=== PATIENT | female | born 1950 | race Caucasian/White ===

== ENCOUNTER 2023-11-24 20:25 | Inpatient (IN) | payer MEDICARE ==
[~2023-11-24] VITALS: Ht 163.8 cm; Wt 72.6 kg
[2023-11-24] MEDS ORDERED: ONDANSETRON HYDR4 M1 PO (21:00)
[2023-11-24] MEDS ORDERED: AMITRIPTYLINE10 MG PO (21:01)
[2023-11-24] MEDS ORDERED: CYCLOBENZAPRINE10 MG PO (21:01)
[2023-11-24] MEDS ORDERED: GLIPIZIDE10 M2 PO (21:02)
[2023-11-24] MEDS ORDERED: LEXAPRO20 MG PO (21:02)
[2023-11-24] MEDS ORDERED: LOSARTAN POTAS100 M1 PO (21:03)
[2023-11-24] MEDS ORDERED: LEVOTHYROXINE75 MC1 PO (21:03)
[2023-11-24] MEDS ORDERED: METOPROLOL SUCC50 M1 PO (21:06)
[2023-11-24] MEDS ORDERED: MIRTAZAPINE30 M2 PO (21:07)
[2023-11-24] MEDS ORDERED: SIMVASTATIN80 MG PO (21:08)
[2023-11-24] MEDS ORDERED: ZOLOFT50 MG PO (21:08)
[2023-11-24] MEDS ORDERED: METFORMIN XR500 MG PO (21:09)
[2023-11-24] MEDS ORDERED: ACTOS30 M1 PO (21:10)
[2023-11-24] MEDS ORDERED: ROPINIROLE HYD0.5 MG PO (21:11)
[2023-11-24] MEDS ORDERED: GEMFIBROZIL600 MG PO (21:12)
[2023-11-24 21:18] VITALS: BP 120/58
[2023-11-24] MEDS ORDERED: MG-AL HYDROXIDE/SIMETICONE 30 ML UDC PO PRN (21:35)
[2023-11-24] MEDS ORDERED: Magnesium Hydroxide 30 ML UDC PO PRN (21:35)
[2023-11-24] MEDS ORDERED: ACETAMINOPHEN 325 MG TAB PO PRN (21:35)
[2023-11-24] MEDS ORDERED: Menthol/Zinc Oxide 4 GM THIN T PRN (21:50)
[2023-11-24] MEDS ORDERED: Ziprasidone Mesylate 20 MG VIAL IM PRN (22:00)
[2023-11-24] MEDS ORDERED: LORazepam 1 MG TAB PO PRN (22:00)
[2023-11-24 22:34] LABS: BILIRUBIN Negative (Negative); BLOOD Negative (Negative); CLARITY Clear (Clear); COLOR Yellow (Yellow); GLUCOSE Negative (Negative); KETONE Negative (Negative); LEUKO ESTERASE 2+ (Negative); NITRITE Negative (Negative); PH 6.5 (4.5-8.0); UROBILINOGEN 0.2 E.U./dl (0.0-1.0)
[2023-11-24 22:46] LABS: RBC 0-2 rbc/hpf (0-2); WBC 16-20 wbc/hpf (0-5)
[2023-11-25] MEDS ORDERED: Ropinirole Hydrochloride 0.5 MG TAB PO PRN (03:10)
[2023-11-25] MEDS ORDERED: Cyclobenzaprine Hydrochlorid 10 MG TAB PO PRN (03:15)
[2023-11-25] MEDS ORDERED: Melatonin 5 MG TABLET PO PRN (03:40)
[2023-11-25] MEDS ORDERED: Acetaminophen/Hydrocodone HP 10/325 PO PRN (03:40)
[2023-11-25] MEDS ORDERED: Ropinirole Hydrochloride 0.5 MG TAB ONE (03:52)
[2023-11-25] MEDS ORDERED: Levothyroxine Sodium 75 MCG TAB PO SCH (06:00)
[2023-11-25 07:03] LABS: BASO % 0.3 % (0.0-1.0); EOS # 0.1 10*3/uL (0.0-0.4); EOS % 1.1 % (1.0-4.0); HEMATOCRIT 32.1 % (37.0-47.0); LYMPH # 1.8 10*3/uL (1.3-4.4); LYMPH % 27.7 % (27.0-41.0); MEAN CELL VOLUME 101.3 fl (81.0-99.0); MEAN CORPUSCULAR HGB 32.2 pg (27.0-31.0); MEAN CORPUSCULAR HGB CONC 31.8 g/dl (33.0-37.0); MEAN PLATELET VOLUME 9.7 fl (9.6-12.3); MONO # 0.5 10*3/uL (0.1-1.0); MONO % 7.6 % (3.0-9.0); PLATELET COUNT AUTOMATED 184 10*3/uL (130-400); RED BLOOD COUNT 3.17 10*6/uL (4.10-5.10); RED CELL DISTRI WIDTH 12.6 % (0-14.5); WHITE BLOOD COUNT 6.4 10*3/uL (4.8-10.8)
[2023-11-25 07:28] LABS: ALKALINE PHOSPHATASE 45 U/L (46-116); BUN 14 mg/dl (9-23); CHLORIDE 105 mmol/L (98-107); CHOLESTEROL 154 mg/dL (<200); LDL CHOLESTEROL 65 mg/dL (9-159); POTASSIUM 3.9 mmol/L (3.4-5.1); SGPT/ALT 22 U/L (5-49); TRIGLYCERIDES 270 mg/dl (<150)
[2023-11-25] MEDS ORDERED: glipiZIDE 10 MG TAB PO SCH (07:30)
[2023-11-25 07:49] LABS: VITAMIN D, 25-HYDROXY 77.5 ng/mL (30-100)
[2023-11-25 08:00] VITALS: BP 123/59
[2023-11-25] MEDS ORDERED: Losartan Potassium 50 MG TAB PO SCH (09:00)
[2023-11-25] MEDS ORDERED: METOPROLOL SUCCINATE XR 50 MG TAB PO SCH (09:00)
[2023-11-25] MEDS ORDERED: Ondansetron Hydrochloride 4 MG TAB PO SCH (09:00)
[2023-11-25] MEDS ORDERED: Pioglitazone Hydrochloride 15 MG TAB PO SCH (10:00)
[2023-11-25] MEDS ORDERED: BENZONATATE 100 MG CAP PO PRN (15:05)
[2023-11-25 20:00] VITALS: BP 95/72
[2023-11-25] MEDS ORDERED: Mirtazapine 15 MG TAB PO SCH (21:00)
[2023-11-25] MEDS ORDERED: SIMVASTATIN 80 MG TABLET PO SCH (22:00)
[2023-11-26] MEDS ORDERED: OMEPRAZOLE 20 MG CAP PO SCH (06:00)
[2023-11-26 08:00] VITALS: BP 129/67
[2023-11-26] MEDS ORDERED: hydrOXYzine pamoate 25 MG CAP PO SCH (09:00)
[2023-11-26] MEDS ORDERED: Ondansetron Hydrochloride 4 MG TAB PO PRN (13:09)
[2023-11-26] MEDS ORDERED: CHOLESTYRAMINE 4 GM PACKET PO PRN (17:20)
[2023-11-26 20:00] VITALS: BP 127/57
[2023-11-27 07:29] VITALS: BP 136/72
[2023-11-27] MEDS ORDERED: hydrOXYzine pamoate 25 MG CAP PO SCH (09:00)
[2023-11-27] MEDS ORDERED: B-121000 MC1 PO (18:15)
[2023-11-27 20:00] VITALS: BP 147/56
[2023-11-28 07:36] VITALS: BP 128/66
[2023-11-28] MEDS ORDERED: HYDROXYZINE HCL25 MG PO (09:43)
[2023-11-28] MEDS ORDERED: MIRTAZAPINE15 M2 PO (09:43)
== END 2023-11-28 11:56 | disposition home or self-care (01) | DRG 885 ==
LOC: 3N 20:25
PROVIDERS: ADMIT Psychiatry & Neurology Psychiatry; ATTEND Psychiatry & Neurology Psychiatry
PROC: GZHZZZZ Group Psychotherapy (ICD-10-PCS; principal; 2023-11-28)
PROC: GZ51ZZZ Individual Psychotherapy, Behavioral (ICD-10-PCS; 2023-11-28)
DX: F33.2 Major depressive disorder, recurrent severe without psychotic features (principal); N18.31 Chronic kidney disease, stage 3a; E11.65 Type 2 diabetes mellitus with hyperglycemia; R45.851 Suicidal ideations; R82.71 Bacteriuria; D50.9 Iron deficiency anemia, unspecified; F41.9 Anxiety disorder, unspecified; F43.21 Adjustment disorder with depressed mood; E78.5 Hyperlipidemia, unspecified; G25.81 Restless legs syndrome; E03.9 Hypothyroidism, unspecified; E11.22 Type 2 diabetes mellitus with diabetic chronic kidney disease; M54.9 Dorsalgia, unspecified; M54.50 Low back pain, unspecified; G89.29 Other chronic pain; I12.9 Hypertensive chronic kidney disease with stage 1 through stage 4 chronic kidney disease, or unspecified chronic kidney disease; Z79.84 Long term (current) use of oral hypoglycemic drugs; Z79.899 Other long term (current) drug therapy; Z90.49 Acquired absence of other specified parts of digestive tract; Z98.891 History of uterine scar from previous surgery; Z83.3 Family history of diabetes mellitus